=== PATIENT | female | born 1980 | race Hispanic/Latino ===

== ENCOUNTER 2018-01-05 11:29 | Emergency (ER) | payer BC ==
[2018-01-05] MEDS ORDERED: Sodium Chloride 0.9% 1,000 ML IV ONE (12:30)
--- NOTE | 2018-01-05 12:53 | C.PDOC ---
History Of Present Illness 37 year old female presents to ED with complaints of waking up feeling nausea with 3 episodes of vomiting and associated bodyaches, chills and generalized weakness. Patient is late on menses, is currently 7 month old at home. Denies any headache, neck pain, vaginal pain, abdominal pain, diarrhea. Time Seen by Provider: 01/05/18 12:21 Chief Complaint (Nursing): GI Problem History Per: Patient Onset/Duration Of Symptoms: Hrs Current Symptoms Are (Timing): Still Present Severity: Moderate Past Medical History Reviewed: Historical Data, Nursing Documentation, Vital Signs Vital Signs: Last Vital Signs Temp 99.1 F 01/05/18 11:37 Pulse 104 H 01/05/18 11:37 Resp 22 01/05/18 11:37 BP Pulse Ox 100 01/05/18 11:37 - Medical History PMH: No Chronic Diseases Surgical History: No Surg Hx Family History: States: No Known Family Hx - Social History Hx Alcohol Use: Yes Hx Substance Use: No - Immunization History Hx Tetanus Toxoid Vaccination: Yes Hx Influenza Vaccination: No Hx Pneumococcal Vaccination: No Review Of Systems Except As Marked, All Systems Reviewed And Found Negative. Constitutional: Positive for: Chills, Weakness, Malaise. Negative for: Fever Gastrointestinal: Positive for: Nausea, Vomiting. Negative for: Abdominal Pain, Diarrhea Genitourinary: Negative for: Pelvic Pain Musculoskeletal: Negative for: Neck Pain Neurological: Negative for: Headache Physical Exam - Physical Exam Appears: Non-toxic, No Acute Distress Skin: Normal Color, Warm, Dry Head: Atraumatic, Normacephalic Eye(s): bilateral: Normal Inspection Nose: Normal Oral Mucosa: Moist Neck: Supple Chest: Symmetrical Cardiovascular: Rhythm Irregular (tachycardiac) Respiratory: Normal Breath Sounds, No Rales, No Rhonchi, No Wheezing Gastrointestinal/Abdominal: Normal Exam, Soft, No Tenderness, No Guarding, No Rebound Neurological/Psych: Oriented x3, Normal Speech ED Course And Treatment - Laboratory Results Result Diagrams: 01/05/18 12:47 01/05/18 12:47 O2 Sat by Pulse Oximetry: 100 (RA) Pulse Ox Interpretation: Normal Medical Decision Making Medical Decision Making: Impression: Vomiting Plan: * Labs * Flu test * UA * BHCG * IV NS, Zofran Progress: Labs reviewed. Patient remained afebrile alert and oriented with stable vital signs during ER evaluation. On re-examination, patient is resting comfortably in no acute distress. Patient reports improvement of nausea and no abdominal pain. Patient feels comfortable going home and will be discharged. Patient given follow up instructions. Instructed to return to ER if symptoms worsen or new symptoms arise. Disposition Counseled Patient/Family Regarding: Diagnosis, Need For Followup, Rx Given - [facility] [Outside] Disposition: HOME/ ROUTINE Disposition Time: 13:53 Condition: IMPROVED Additional Instructions: Follow up with your primary medical doctor or clinic in 2-5 days for further evaluation. Drink fluids to prevent dehydration. Take Zofran as prescribed. Try low-fat diet with increase in fluids such as sport drink, gelatin.Return to the emergency department at any time if symptoms persist or worsen. Prescriptions: Famotidine [Pepcid] 20 mg PO DAILY #20 tab Ondansetron ODT [Zofran ODT] 1 odt PO BID PRN #6 odt PRN Reason: Nausea/Vomiting Instructions: Nausea and Vomiting, Adult (DC) Forms: [employer] ([place]) - POA Present On Arrival: None - Clinical Impression Clinical Impression: Vomiting - PA / QUILL LAYER / Resident Statement MD/DO has reviewed & agrees with the documentation as recorded. - Scribe Statement The provider has reviewed the documentation as recorded by the Tamara Tran Provider Attestation All medical record entries made by the Zehraibe were at my direction and personally dictated by me. I have reviewed the chart and agree that the record accurately reflects my personal performance of the history, physical exam, medical decision making, and the department course for this patient. I have also personally directed, reviewed, and agree with the discharge instructions and disposition.
[2018-01-05 12:54] LABS: BASO % 0.4 % (0.0-2.0); EOS % 0.1 % (0.0-4.0); HEMOGLOBIN 12.5 g/dL (11.0-16.0); LYMPH # 0.2 K/uL (1.0-4.3); LYMPH % 2.1 % (20.0-40.0); MEAN CELL VOLUME 80.5 fL (81.0-99.0); MEAN CORPUSCULAR HEMOGLOBIN 27.4 pg (27.0-31.0); MEAN PLATELET VOLUME 8.8 fL (7.2-11.7); MONO # 0.3 K/uL (0.0-0.8); MONO % 2.4 % (0.0-10.0); PLATELET COUNT 234 K/uL (130-400); RBC 4.57 Mil/uL (3.80-5.20); RED CELL DISTRIBUTION WIDTH 13.4 % (11.5-14.5); WHITE BLOOD COUNT 10.6 K/uL (4.8-10.8)
[2018-01-05 12:56] LABS: HCG,QUALITATIVE URINE NEGATIVE (NEGATIVE)
[2018-01-05 13:00] LABS: SQUAMOUS EPITHIAL 1 /hpf (0-5); URINE BILIRUBIN NEGATIVE (NEGATIVE); URINE BLOOD NEGATIVE (NEGATIVE); URINE CLARITY Clear (Clear); URINE COLOR Yellow (YELLOW); URINE GLUCOSE (UA) NORMAL (Normal); URINE LEUKOCYTE ESTERASE NEG Leu/uL (Negative); URINE PROTEIN NEGATIVE (NEGATIVE); URINE UROBILINOGEN NORMAL mg/dL (0.2-1.0)
[2018-01-05 13:12] LABS: BLOOD UREA NITROGEN 19 mg/dL (7-17); CALCIUM 8.6 mg/dl (8.6-10.4); GFR NON-AFRICAN AMERICAN > 60
[2018-01-05 13:13] LABS: ALB/GLOB RATIO 1.4 (1.0-2.1); ALBUMIN 4.6 g/dL (3.5-5.0); ALT/SGPT 16 U/L (9-52); AST/SGOT 34 U/L (14-36)
[2018-01-05 13:28] LABS: BANDS 1 % (0-2); LYMPHOCYTE 2 % (20-40); MONOCYTE 3 % (0-10); NEUTROPHIL 94 % (50-75); PLATELET ESTIMATE NORMAL (NORMAL); TOTAL CELLS COUNTED 100
[2018-01-05 14:02] VITALS: BP 97/51; PULSE 88; RESP 18; TEMP 100.6
[2018-01-05 14:44] VITALS: O2SAT 100
== END 2018-01-05 14:19 | disposition home or self-care (01) ==
LOC: C.ER 11:29 → MERGE 11:29 → C.ER 14:19
DX: R11.2 Nausea with vomiting, unspecified (principal)
CPT/HCPCS: 80053; 81001; 84702; 84703; 85025; 87804; 96361; 96374; 99284; J2405; J7030